=== PATIENT | male | born 1985 | race Caucasian/White ===

== ENCOUNTER 2023-08-24 11:57 | Emergency (ER) | payer MEDICAID ==
[~2023-08-24] VITALS: Ht 157.5 cm; Wt 68.0 kg
[2023-08-24 12:06] VITALS: BP 120/71; TEMP 98.1; O2SAT 99
[2023-08-24] MEDS ORDERED: LIDOCAINE 1% INJ 50 ML MDV IJ ONE (12:41)
[2023-08-24] MEDS ORDERED: TDAP [DIPH/PERTUSSIS/TET] 0.5 ML VIAL IM ONE (12:44)
[2023-08-24] MEDS: TDAP [DIPH/PERTUSSIS/TET] 0.5 ML VIAL IM ONE (12:48)
[2023-08-24] MEDS: LIDOCAINE 1% INJ 50 ML MDV IJ ONE (13:17)
[2023-08-24] MEDS: BACI/NEOM/POLY B OINT PKT 1 UDPKT PACKET TP ONE (13:17)
== END 2023-08-24 14:11 | disposition home or self-care (01) ==
LOC: ER 12:00
DX: S61.210A Laceration without foreign body of right index finger without damage to nail, initial encounter (principal); W26.8XXA Contact with other sharp object(s), not elsewhere classified, initial encounter; Y93.89 Activity, other specified; Y92.89 Other specified places as the place of occurrence of the external cause; Y99.8 Other external cause status
CPT/HCPCS: 12001; 90471; 90715; 99283; A6403; J3490